=== PATIENT | female | born 2000 | race Caucasian/White ===

== ENCOUNTER 2021-01-02 16:07 | Emergency (ER) | payer BC, OTHER ==
[~2021-01-02] VITALS: Ht 165 cm; Wt 65.0 kg
[2021-01-02 16:30] VITALS: BP 131/92
--- NOTE | 2021-01-02 17:11 | Diagnostic Imaging Report ---
PROCEDURE: CT head without contrast. TECHNIQUE: Multiple contiguous axial images were obtained through the brain without the use of intravenous contrast. Auto Exposure Controls were utilized during the CT exam to meet ALARA standards for radiation dose reduction. INDICATION: Right orbit injury CT HEAD: CT images of the head were obtained. FINDINGS: Ventricles and sulci are within normal limits for size. There is no intracranial hemorrhage identified. There is no abnormal mass effect or shift of midline structures. IMPRESSION: Unremarkable CT of the head. Dictated by: Dictated on workstation # [id number]
--- NOTE | 2021-01-02 17:13 | Diagnostic Imaging Report ---
PROCEDURE: CT orbit without contrast. TECHNIQUE: Multiple contiguous axial images were obtained through the facial bones without the use of intravenous contrast. Auto Exposure Controls were utilized during the CT exam to meet ALARA standards for radiation dose reduction. INDICATION: Struck in orbit with golf ball. FINDINGS: There is no evidence of an acute fracture. Globes are intact. There is no evidence of retro-orbital hematoma. There is mild pre-orbital contusion. No paranasal sinus air-fluid level is identified. IMPRESSION: Right periorbital contusion without other evidence of acute abnormality. Dictated by: Dictated on workstation # [id number]
--- NOTE | 2021-01-02 17:15 | ED General ---
General Chief Complaint: Eye Problems Stated Complaint: RIGHT EYE INJ Nursing Triage Note: PT REPORTS SHE WAS PLAYING GOLF AND THE BALL HIT A ROOT THEN A TREE THEN RICOCHETED BACK INTO HER RIGHT EYE. PT HAS FELT NAUSEATED SINCE THE INJURY AND THE RIGHT EYE LID HAS SOME SWELLING. Nursing Sepsis Screen: No Definite Risk History of Present Illness Date Seen by Provider: Jan 02, 2021 Time Seen by Provider: 17:12 Initial Comments Patient presenting to the emergency department for evaluation of traumatic injury to the head as she is here for a golf tournament and she says she hit a golf ball close to a tree and the ball ricocheted and up hitting her in the right eye. Patient says that she bent forward in a not completely pass out and was able to finish the whole in the next home to finish her complete round. She says when she was playing she had severe headache and nausea and dizziness. She said she initially had blurred vision out of her right eye however now her vision is normal. She says that she feels much better now after arriving to emergency department with resolving headache nausea and dizziness and says that her vision is back to normal completely. She is healthy and takes no medications on a regular basis. She is in no obvious distress with normal vital signs. Allergies and Home Medications Patient Home Medication List Home Medication List Reviewed: Yes Review of Systems Review of Systems Constitutional: dizziness EENTM: blurred vision Respiratory: no symptoms reported Cardiovascular: no symptoms reported Gastrointestinal: nausea Musculoskeletal: no symptoms reported Skin: no symptoms reported Psychiatric/Neurological: Headache Past Rhwsfnh-Yrzhhg-Yiwtif Hx Patient Social History Alcohol Use: Denies Use Recent Infectious Disease Expo: No Seasonal Allergies Seasonal Allergies: No Past Medical History Surgeries: Yes Respiratory: No Cardiac: No Neurological: No Genitourinary: No Gastrointestinal: No Musculoskeletal: No Endocrine: No HEENT: No Cancer: No Psychosocial: No Integumentary: No Blood Disorders: No Physical Exam Vital Signs Vital Signs - First Documented 01/02/21 16:30 Temp 37.8 Pulse 74 Resp 18 B/P (MAP) 131/92 (105) Pulse Ox 100 O2 Delivery Room Air Capillary Refill : Less Than 3 Seconds Height, Weight, BMI Height: '" Weight: lbs. oz. kg; 23.00 BMI Method: General Appearance: No Apparent Distress, WD/WN Eyes: Right Eye Lid Inflammation; Bilateral Eye PERRL, Bilateral Eye EOMI HEENT: PERRL/EOMI, Other (Tenderness to palpation of the orbit superiorly and medially) Neck: Non Tender, Supple Respiratory: No Respiratory Distress Cardiovascular: Regular Rate, Rhythm Extremity: Normal Capillary Refill Neurologic/Psychiatric: Alert, Oriented x3 Skin: Normal Color, Warm/Dry Progress/Results/Core Measures Suspected Sepsis Recent Fever Within 48 Hours: No Infection Criteria Present: None New/Unexplained Altered Menta: No Sepsis Screen: No Definite Risk SIRS Temperature: Pulse: 74 Respiratory Rate: 18 Blood Pressure 131 /92 Mean: 105 Results/Orders My Orders Orders - DAVID CALLEJAS DO Ct Orbit/Sella/Iac Wo (01/02/21 16:45) Ct Head Wo (01/02/21 16:45) Vital Signs/I&O 01/02/21 16:30 Temp 37.8 Pulse 74 Resp 18 B/P (MAP) 131/92 (105) Pulse Ox 100 O2 Delivery Room Air Capillary Refill : Less Than 3 Seconds Blood Pressure Mean: 105 Progress Note : Progress Note I told patient and mother that she likely did sustain a concussion given the headache and other neurologic symptoms and she may have suffered a vasovagal episode as well from the eye trauma. There is no signs of traumatic injury with no tearing or actual globe trauma given the normal appearance of her eye examination. I will check CT imaging and reassess. She says she does not need anything for her symptoms as they are improving rapidly. Departure Impression Primary Impression: CHI (closed head injury) Qualified Codes: S09.90XA - Unspecified injury of head, initial encounter Additional Impression: Periorbital contusion of left eye Qualified Codes: S05.12XA - Contusion of eyeball and orbital tissues, left eye, initial encounter Disposition: 01 HOME, SELF-CARE Condition: Stable Departure-Patient Inst. Referrals: NO,LOCAL PHYSICIAN (PCP/Family) Primary Care Physician Patient Instructions: Traumatic Brain Injury, Eye Contusion (DC) Scripts Ondansetron (Ondansetron Odt) 4 Mg Tab.rapdis 4 MG PO Q6H PRN for NAUSEA/VOMITING-1ST LINE for 3 Days, #10 TAB Prov: DAVID CALLEJAS DO 01/02/21 DAVID CALLEJAS DO Jan 02, 2021 17:15
[2021-01-02] MEDS ORDERED: ONDA4TAB11 PO (17:31)
== END 2021-01-02 17:36 | disposition home or self-care (01) ==
LOC: ER FS 16:11
DX: S09.90XA Unspecified injury of head, initial encounter (principal); S05.12XA Contusion of eyeball and orbital tissues, left eye, initial encounter; W21.04XA Struck by golf ball, initial encounter; Y93.53 Activity, golf
CPT/HCPCS: 70450; 70480